=== PATIENT | female | born 1980 | race Two or more races ===

== ENCOUNTER 2019-03-07 20:44 | Emergency (ER) | payer BC ==
[~2019-03-07] VITALS: Ht 165.1 cm; Wt 63.5 kg
[~2019-03-07 20:44] MED LIST: ACE325RS PR; ACET60TA10 PO; DIPH25CA39 PO; PREN-129 OR
[2019-03-07 22:08] LABS: Basophils # (auto) 0.1 uL; Eosinophils # (auto) 0.1 uL
[2019-03-07 22:22] LABS: Alanine Aminotransferase 21 U/L (13-56); Albumin 3.7 g/dL (3.4-5.0); Amylase 37 U/L (25-115); Anion Gap 9 (5-15); Blood Urea Nitrogen 8 mg/dL (7-18); Calcium 8.9 mg/dL (8.5-10.1); Carbon Dioxide 26 mmol/L (21-32); Chloride 101 mmol/L (98-107); Glucose 138 mg/dL (74-106); Lipase 74 U/L (73-393); Potassium 4.1 mmol/L (3.5-5.1); Sodium 136 mmol/L (136-145)
[2019-03-07 22:27] LABS: Alkaline Phosphatase 85 U/L (45-117); Aspartate Aminotransferase 10 U/L (15-37); BUN/Creatinine Ratio 9.9; Bilirubin, Total 0.5 mg/dL (0.2-1.0); GFR African American 103 mL/min; GFR Non-African American 85 mL/min; Total Protein 8.2 g/dL (6.4-8.2)
[2019-03-07 22:34] LABS: Basophils % (auto) 0.6 % (0.0-2.0); Eosinophils % (auto) 0.5 % (0.0-7.0); Lymphocytes # (auto) 0.8 uL; Lymphocytes % (auto) 6.6 % (10.0-50.0); Monocytes # (auto) 1.3 uL; Monocytes % (auto) 10.3 % (0.0-12.0); Neutrophils # (auto) 10.6 uL; White Blood Cell 12.3 10^3/uL (4.4-10.8)
[2019-03-07 22:35] LABS: Hematocrit 28.6 % (36.0-46.0); Hemoglobin 8.3 g/dL (12.2-16.2); Mean Corpuscular Hgb Conc. 29.1 g/dL (32.0-36.0); Red Blood Cells 4.61 10^6/uL (4.0-5.20)
[2019-03-07 22:36] LABS: Platelet Count (auto) 329 10^3/uL (140-450); Red Cell Distribution Width 22.8 % (11.8-14.3)
[2019-03-08] MEDS ORDERED: MORPHINE SULFATE 4 MG/ML SYR/VIAL IV ONE (00:45)
[2019-03-08] MEDS ORDERED: ONDANSETRON HCL 4 MG/2 ML VIAL IV ONE (00:45)
[2019-03-08 01:04] VITALS: BP 113/70
[2019-03-08 01:28] LABS: Urine Bacteria FEW /hpf (None Seen); Urine Blood 2+ /uL (Negative); Urine Mucus FEW (None Seen); Urine Specific Gravity 1.011 (1.001-1.035); Urine WBC 673 /hpf (0 - 5); Urine WBC Clumps PRESENT /hpf (None Seen)
[2019-03-08] MEDS ORDERED: LORazepam 2MG/ML-1ML VIAL IV ONE (01:30)
== END 2019-03-08 02:21 | disposition home or self-care (01) ==
LOC: ER 20:50
DX: N39.0 Urinary tract infection, site not specified (principal); K57.30 Diverticulosis of large intestine without perforation or abscess without bleeding; Z90.49 Acquired absence of other specified parts of digestive tract
CPT/HCPCS: 36415; 74176; 80053; 81001; 82150; 83690; 84484; 84702; 85025; 94761; 96374; 96375; 99284; J2060; J2270; J2405

== ENCOUNTER 2019-03-09 10:45 | Inpatient (IN) | payer BC ==
[~2019-03-09] VITALS: Ht 165.1 cm; Wt 66.6 kg
[2019-03-09] MEDS ORDERED: SODIUM CHLORIDE 0.9% 1,000 ML IV ONE ×2 (10:52)
[2019-03-09] MEDS ORDERED: PIPERACILLIN-TAZOB 3.375GM 100 ML IV ONE (11:00)
[2019-03-09 11:40] LABS: Basophils # (auto) 0.1 uL; Basophils % (auto) 0.6 % (0.0-2.0); Eosinophils # (auto) 0 uL; Hemoglobin 8.4 g/dL (12.2-16.2); Lymphocytes # (auto) 0.4 uL; White Blood Cell 13.3 10^3/uL (4.4-10.8)
[2019-03-09 11:42] LABS: Eosinophils % (auto) 0.1 % (0.0-7.0); Hematocrit 29.2 % (36.0-46.0); Lymphocytes % (auto) 2.7 % (10.0-50.0); Mean Corpuscular Hgb Conc. 28.8 g/dL (32.0-36.0); Mean Corpuscular Volume 62.6 fL (80.0-100.0); Monocytes % (auto) 7.6 % (0.0-12.0); Neutrophils # (auto) 11.8 uL; Platelet Count (auto) 242 10^3/uL (140-450); Red Blood Cells 4.66 10^6/uL (4.0-5.20)
[2019-03-09 11:44] LABS: Albumin 3.1 g/dL (3.4-5.0); Calcium 8.6 mg/dL (8.5-10.1); Potassium 3.2 mmol/L (3.5-5.1)
[2019-03-09 11:48] LABS: BUN/Creatinine Ratio 9.3; Bilirubin, Total 0.4 mg/dL (0.2-1.0); Total Protein 7.7 g/dL (6.4-8.2)
[2019-03-09 11:55] LABS: Red Cell Distribution Width 21.9 % (11.8-14.3)
[2019-03-09 12:03] LABS: INR 1.02 (0.9-1.15); Partial Thromboplastin Time 34.2 sec (23.78-33.04); Prothrombin Time 10.9 sec (9.27-12.13)
[2019-03-09] MEDS ORDERED: MORPHINE SULF INJ 2 MG/ML SYRINGE 1ML IV ONE (14:30)
[2019-03-09] MEDS ORDERED: ONDANSETRON HCL 4 MG/2 ML VIAL IV ONE (14:30)
[2019-03-09] MEDS ORDERED: ACETAMINOPHEN 650 mg PER 20 mL UD PO ONE (16:15)
[2019-03-09] MEDS ORDERED: ACETAMINOPHEN 325 MG TAB PO ONE (16:15)
[2019-03-09] MEDS ORDERED: ONDANSETRON HCL 4 MG/2 ML VIAL IV PRN (16:45)
[2019-03-09] MEDS ORDERED: FAMOTIDINE (10MG/ML) 2ML VL IV ONE (16:45)
[2019-03-09] MEDS: SOD CHL 0.9%/ KCL 20MEQ 1,000 ML IV SCH (17:01)
[2019-03-09 17:25] LABS: Alcohol, Urine < 3.0 mg/dL (0-5); Amphetamine Screen, Urine NEGATIVE (NEGATIVE); Barbiturate Scree,Urine NEGATIVE (NEGATIVE); Benzodiazephine Screen, Urine NEGATIVE (NEGATIVE); Cannabinoid Screen, Urine NEGATIVE (NEGATIVE); Cocaine Screen, Urine NEGATIVE (NEGATIVE); Opiate Scree,Urine POSITIVE (NEGATIVE); Phencyclidine Screen, Urine NEGATIVE (NEGATIVE)
[2019-03-09 18:11] LABS: Urine Bacteria MOD /hpf (None Seen); Urine Blood 1+ /uL (Negative); Urine Specific Gravity 1.013 (1.001-1.035); Urine WBC 107 /hpf (0 - 5)
[2019-03-09] MEDS: ACETAMINOPHEN 325 MG TAB PO PRN (18:17)
[2019-03-09] MEDS: cefTRIAXone 1GM/50ML D5W 50 ML IV SCH (21:28)
[2019-03-09] MEDS: FAMOTIDINE (10MG/ML) 2ML VL IV SCH (22:05)
--- NOTE | 2019-03-09 22:50 | NUR ---
MS admit from ER Patient admitted to tele/MS and oriented to primary RN, unit, room, bed, and unit policies regarding patient care and visiting hours. NS/20 mEq KCL infusing at 120 ml/hr. Bed is in lowest position and locked. Call light within reach. Board updated. Patient weighed by bedscale and encouraged to call if they need something. All questions and concerns addressed, patient verbalized understanding.
[2019-03-09 23:00] VITALS: BP 94/57
[2019-03-10] VITALS (11 sets, daily range): BP systolic 94–113; BP diastolic 53–72
--- NOTE | 2019-03-10 00:01 | NUR ---
Ramonita hospitalist because patient is having pain 9 out of 10 in her bilateral flank which she says is not being relieved or even made tolerable by Morphine. Patient has low BP at this time, 94/57 with MAP of 69 so opiates may decrease BP further. Patient is believed by Dr. Thapa to have UTI, possible pyelonephritis. Patient's BUN and creatinine are 13 and 1.40.
--- NOTE | 2019-03-10 00:18 | NUR ---
Hospitalist called back and notified her of pain as well as low BP and current BUN and Creatinine levels for patient. ALINA Mitchell ordered Toradol 30 mg IV Once. Order confirmed and placed.
[2019-03-10] MEDS ORDERED: KETOROLAC TROMETH 30 MG/ML 1ML VIAL IV ONE (00:30)
[2019-03-10] MEDS: SOD CHL 0.9%/ KCL 20MEQ 1,000 ML IV SCH ×3 (00:48→18:29)
--- NOTE | 2019-03-10 00:55 | NUR ---
Received a call from Laboratory notifying me that patient's blood culture has come back positive for Gram Negative rods.
--- NOTE | 2019-03-10 02:01 | NUR ---
Paging hospitalist to notify her that patient's blood culture came back positive for Gram Negative rods. Patient is currently receiving Rocephin 1 gm Daily and received Zosyn 3.375 gm IV once in ED.
[2019-03-10] MEDS: MORPHINE SULF INJ 2 MG/ML SYRINGE 1ML IV PRN ×4 (04:40→21:06)
[2019-03-10 05:38] LABS: Eosinophils # (auto) 0 uL; Eosinophils % (auto) 0.1 % (0.0-7.0); Lymphocytes # (auto) 0.7 uL; Monocytes # (auto) 1.1 uL; Neutrophils # (auto) 7.1 uL
[2019-03-10 05:40] LABS: Basophils # (auto) 0.1 uL; Basophils % (auto) 0.6 % (0.0-2.0); Hematocrit 22.9 % (36.0-46.0); Lymphocytes % (auto) 8.1 % (10.0-50.0); Mean Corpuscular Hemoglobin 18.2 pg (28.0-32.0); Mean Corpuscular Hgb Conc. 28.9 g/dL (32.0-36.0); Mean Corpuscular Volume 62.8 fL (80.0-100.0); Monocytes % (auto) 12.6 % (0.0-12.0); Neutrophils % (auto) 78.6 % (37.0-80.0); Platelet Count (auto) 168 10^3/uL (140-450); Red Blood Cells 3.65 10^6/uL (4.0-5.20)
[2019-03-10 05:44] LABS: Red Cell Distribution Width 22.3 % (11.8-14.3)
[2019-03-10 05:45] LABS: Hemoglobin 6.7 g/dL (12.2-16.2)
--- NOTE | 2019-03-10 05:57 | NUR ---
paging hospitalist because patient has critical low hemoglobin of 6.7 and hematocrit of 22.9. Previous H&H was 8.4 and 29.2. Current BP is 94/64 which is slightly lower than what she was trending earlier in the night. Heart rate is 90, previous was 96. Patient does not feel symptomatic. Patient is reluctant to have a blood transfusion but will allow it if hospitalist orders it. Patient does not report blood in her urine but did report some blood in her diarrhea two days ago.
--- NOTE | 2019-03-10 06:07 | NUR ---
Spoke to ALINA Mitchell who ordered type and screen STAT, Stool Occult blood, and 1 unit of packed RBCs. Orders confirmed and ordered.
[2019-03-10 06:14] LABS: Calcium 7.8 mg/dL (8.5-10.1); Potassium 3.2 mmol/L (3.5-5.1)
[2019-03-10 06:17] LABS: BUN/Creatinine Ratio 11.2
--- NOTE | 2019-03-10 06:45 | NUR ---
Patient would like to speak to MD in person and wants to see if there are any other options available beside blood transfusion. Patient would like to know if Albumin or some other medication can be used instead. I told her I would contact the hospitalist to see if she can speak to patient when she returns from going downstairs to have a cigarette. Addendum: 03/10/19 at 0651 by RYAN DURAN RN Patient did agree to sign consent for blood transfusion.
--- NOTE | 2019-03-10 06:48 | NUR ---
Patient has gone downstairs to have a cigarette using her smoking AMA. Patient is able to walk without feeling dizzy or weak.
--- NOTE | 2019-03-10 07:30 | NUR ---
Opening Shift Note Assumed care of patient, awake and alert. No S/S of distress/SOB or pain. Instructed on POC and to call for assist PRN. Bed at its lowest position, side rails up X2, room free of clutter.
--- NOTE | 2019-03-10 07:50 | NUR ---
PAGED HOSPITALIST REGARDING PATIENTS REQUEST TO SPEAK TO MD REGARDING BLOOD TRANSFUSION. PER REPORT FROM [facility] RN, RYAN, PATIENT NOT COMFORTABLE WITH RECEIVING BLOOD TRANSFUSION UNTIL SPEAKING DIRECTLY WITH MD. ENGINEERING AND DEVELOPMENT DIRECTOR HOSPITALIST, KALIN JOHNSON AWARE OF PATIENTS REQUEST. STATES PATIENT CAN SPEAK TO ATTENDING MD ON CASE REGARDING CONCERNS.
[2019-03-10] MEDS: ACETAMINOPHEN 325 MG TAB PO PRN ×3 (08:23→20:27)
[2019-03-10] MEDS: FAMOTIDINE (10MG/ML) 2ML VL IV SCH ×3 (08:25→21:06)
[2019-03-10] MEDS: cefTRIAXone 1GM/50ML D5W 50 ML IV SCH ×2 (08:30→21:04)
--- NOTE | 2019-03-10 10:05 | NUR ---
MD NOE AT BED SIDE TO DISCUSS POC WITH PATIENT. PATIENT VERBALIZES UNDERSTANDING.
[2019-03-10] MEDS ORDERED: NICOTINE 21MG/24 HR TOPICAL PATCH TD ONE (10:15)
[2019-03-10] MEDS ORDERED: POTASSIUM CHL 20 Meq TABLET PO ONE (10:15)
[2019-03-10 11:03] LABS: % Iron Saturation 2.1 % (15-50); Iron < 5 ug/dL (50-170); Total Iron Binding Capacity 236 ug/dL (250-450)
--- NOTE | 2019-03-10 11:40 | NUR ---
NICOJAIROM Patient states she would prefer to use scheduled Nicoderm patch tomorrow. "I have one cigarette left for tomorrow, I would like to use the patch after that".
[2019-03-10] MEDS ORDERED: EZ PAQUE SUSP 12OZ BTL ONE (12:25)
[2019-03-10] MEDS ORDERED: BARIUM SULFATE 98% 340 GM PWDR ONE (12:25)
[2019-03-10] MEDS ORDERED: READI-CAT 2 (BARIUM SULF)(VANILLA SMOOTHIE) 450ML ONE (12:26)
--- NOTE | 2019-03-10 13:00 | NUR ---
DR BOYLE AT BED SIDE MD DISCUSSED POC WITH PATIENT. PATIENT VERBALIZED UNDERSTANDING. MD RECOMMENDS OUT PATIENT FOLLOW UP.
--- NOTE | 2019-03-10 13:20 | NUR ---
PATIENT REQUEST PAIN MEDICATION CHANGE. STATES THAT MORPHINE " DOES NOTHING TO HER PAIN", REQUEST CHANGE TO DILAUDID. DR NOE PAGED. AWAITING CALL BACK.
--- NOTE | 2019-03-10 13:25 | NUR ---
DR PARIKH AWARE OF PATIENTS REQUEST. DENIES REQUEST FOR DILAUDID. STATES HE WILL ENTER ORDER FOR KINSTON.
--- NOTE | 2019-03-10 17:44 | NUR ---
STOOL Stool sample collected and sent to lab via bullet.
[2019-03-10] MEDS: FERROUS SULFATE 325 MG TAB PO SCH (18:30)
--- NOTE | 2019-03-10 18:30 | NUR ---
OFF UNIT Patient ambulated off unit accompanied by friend to smoke. No S/S of distress noted.
--- NOTE | 2019-03-10 18:52 | NUR ---
RETURN TO UNIT Patient returned to unit. States that last cigarette has been used and would like to "try out the patch tonight". Will inform EMILIE DURAND.
--- NOTE | 2019-03-10 19:30 | NUR ---
CLOSING NOTE Endorsed care of patient to NOC Raquel DURAND.
--- NOTE | 2019-03-10 19:45 | NUR ---
Opening Shift Note Assumed care of patient, patient sleeping. No S/S of distress/SOB or pain, respirations even and unlabored. Instructed on POC and to call for assistance PRN, will continue to monitor for changes Q1hr and PRN. Addendum: 03/11/19 at 0257 by Raquel Barron RN RN Visitor at bedside
--- NOTE | 2019-03-10 21:03 | NUR ---
Pain Management Pt medicated for complaints of back pain, will continue to monitor. Call light within reach in lowest locked position. Pt instructed on side effects and to call for assistance as needed
[2019-03-10] MEDS: NICOTINE 21MG/24 HR TOPICAL PATCH TD SCH (21:06)
[2019-03-11] VITALS (7 sets, daily range): BP systolic 98–118; BP diastolic 59–71
[2019-03-11] MEDS: SOD CHL 0.9%/ KCL 20MEQ 1,000 ML IV SCH ×3 (00:53→18:47)
[2019-03-11] MEDS: MORPHINE SULF INJ 2 MG/ML SYRINGE 1ML IV PRN ×4 (00:58→21:23)
--- NOTE | 2019-03-11 00:58 | NUR ---
Pain Management Pt medicated for c/o back pain, will continue to monitor
[2019-03-11] MEDS: ACETAMINOPHEN 325 MG TAB PO PRN ×3 (02:35→21:23)
--- NOTE | 2019-03-11 02:37 | NUR ---
Rounds Patient sleeping, temperature taken 102.6, cooling measures implemented and medicated for fever. No S/S of distress/SOB on 2L NC 93%, denies pain at this time. Will continue to monitor changes q1hr and PRN.
[2019-03-11 06:18] LABS: BUN/Creatinine Ratio 9.6; Calcium 7.9 mg/dL (8.5-10.1); Potassium 3.5 mmol/L (3.5-5.1)
[2019-03-11 06:22] LABS: Eosinophils # (auto) 0 uL; Eosinophils % (auto) 0.2 % (0.0-7.0); Lymphocytes # (auto) 0.8 uL
[2019-03-11 06:27] LABS: Basophils # (auto) 0 uL; Basophils % (auto) 0.6 % (0.0-2.0); Hematocrit 24.1 % (36.0-46.0); Hemoglobin 7.3 g/dL (12.2-16.2); Lymphocytes % (auto) 13.7 % (10.0-50.0); Mean Corpuscular Hemoglobin 19.6 pg (28.0-32.0); Mean Corpuscular Hgb Conc. 30.2 g/dL (32.0-36.0); Monocytes # (auto) 0.6 uL; Monocytes % (auto) 10.7 % (0.0-12.0); Neutrophils # (auto) 4.5 uL; Neutrophils % (auto) 74.8 % (37.0-80.0); Platelet Count (auto) 176 10^3/uL (140-450)
[2019-03-11 07:17] LABS: Red Cell Distribution Width 24.5 % (11.8-14.3)
--- NOTE | 2019-03-11 07:20 | NUR ---
Opening Shift Note Assumed care of patient. Patient asleep but easily arousable. No S/S of distress or SOB or pain. Bed at its lowest position. side rails up x2. Instructed on POC and to call for assist PRN.
[2019-03-11] MEDS: FERROUS SULFATE 325 MG TAB PO SCH ×2 (08:36→18:46)
[2019-03-11] MEDS: cefTRIAXone 1GM/50ML D5W 50 ML IV SCH (08:38)
[2019-03-11] MEDS ORDERED: EZ-GAS II GRANULES (RADIOLOGY USE) PO ONE (08:59)
--- NOTE | 2019-03-11 09:25 | NUR ---
PATIENT TAKEN OFF UNIT TO RADIOLOGY FOR PROCEDURE. PATIENT STABLE, VITALS WITH IN NORMAL LIMIT
[2019-03-11] MEDS ORDERED: GASTROGRAFIN 120 ML SOL ONE (09:30)
[2019-03-11] MEDS ORDERED: FOLIC ACID 1 MG in D5W 5% 50 ML IV ONE (10:00)
[2019-03-11] MEDS ORDERED: ERTAPENEM SOD INJ 1 GM in SODIUM CHL 0.9% 50 ML IV ONE (10:00)
[2019-03-11] MEDS ORDERED: THIAMINE 100mg/ml INJ (200mg/2ml VIAL) IV ONE (10:00)
--- NOTE | 2019-03-11 10:31 | NUR ---
RETURN TO UNIT Patient returned to unit via wheelchair. No S/S of distress noted.
[2019-03-11] MEDS: FOLIC ACID 1 MG in D5W 5% 50 ML IV SCH (11:50)
[2019-03-11] MEDS: THIAMINE 100mg/ml INJ (200mg/2ml VIAL) IV SCH (11:50)
[2019-03-11] MEDS: chlordiazePOXIDE HCL 5 MG CAP PO SCH ×3 (12:24→21:23)
--- NOTE | 2019-03-11 13:50 | NUR ---
IV Infiltrated IV removed with catheter intact, pressure dressing applied. IV access obtained, via clean sterile technique by inserting 22 gauge catheter at right hand after 1 attempt. IV secured properly. No trauma to site. Patient tolerated well.
[2019-03-11] MEDS: HYDROcodone-ACET 5/325MG TAB PO PRN ×2 (15:40→23:37)
--- NOTE | 2019-03-11 19:25 | NUR ---
CLOSING NOTE Endorsed care of patient to NOC Raquel DURAND.
--- NOTE | 2019-03-11 21:06 | NUR ---
MD Called/paged Hospitalist Hector called re:patient complaining of cough and productive cough . Waiting for call back. Continue care.
[2019-03-11] MEDS: FAMOTIDINE (10MG/ML) 2ML VL IV SCH (21:23)
--- NOTE | 2019-03-11 21:52 | NUR ---
returned call Hospitalist Hector returned call, updated on patient status and reason for call, orders received. Continue care.
[2019-03-11] MEDS: guaiFENesin-DM 100/10mg/5ml SYR PO PRN (23:08)
--- NOTE | 2019-03-11 23:10 | NUR ---
Rounds Patient awake and alert x4. No S/S of distress/SOB or pain, patient medicated for cough. Will continue to monitor changes q1hr and PRN.
[2019-03-12 04:51] VITALS: BP 99/61
[2019-03-12] MEDS: guaiFENesin-DM 100/10mg/5ml SYR PO PRN ×3 (04:55→18:42)
[2019-03-12] MEDS: chlordiazePOXIDE HCL 5 MG CAP PO SCH ×4 (04:56→21:30)
[2019-03-12] MEDS: ACETAMINOPHEN 325 MG TAB PO PRN (04:56)
[2019-03-12] MEDS: SOD CHL 0.9%/ KCL 20MEQ 1,000 ML IV SCH ×2 (04:59→10:31)
--- NOTE | 2019-03-12 05:02 | NUR ---
Pain Management Pt medicated for headache pain 06/06, will continue to monitor for pain relief.
[2019-03-12 06:15] LABS: Basophils # (auto) 0 uL; Basophils % (auto) 0.7 % (0.0-2.0); Eosinophils # (auto) 0.1 uL; Eosinophils % (auto) 1.8 % (0.0-7.0); Hematocrit 24.7 % (36.0-46.0); Hemoglobin 7.2 g/dL (12.2-16.2); Lymphocytes # (auto) 1.1 uL; Lymphocytes % (auto) 19.2 % (10.0-50.0); Mean Corpuscular Hemoglobin 19.3 pg (28.0-32.0); Mean Corpuscular Hgb Conc. 29.2 g/dL (32.0-36.0); Mean Corpuscular Volume 66.2 fL (80.0-100.0); Monocytes # (auto) 0.8 uL; Monocytes % (auto) 13.6 % (0.0-12.0); Neutrophils # (auto) 3.7 uL; Neutrophils % (auto) 64.7 % (37.0-80.0); Nucleated Red Blood Cells % 0.1 %; Platelet Count (auto) 184 10^3/uL (140-450); Red Blood Cells 3.73 10^6/uL (4.0-5.20); White Blood Cell 5.7 10^3/uL (4.4-10.8)
[2019-03-12 06:17] LABS: Red Cell Distribution Width 25.5 % (11.8-14.3)
[2019-03-12 06:38] LABS: Potassium 3.7 mmol/L (3.5-5.1)
--- NOTE | 2019-03-12 06:40 | NUR ---
IV removal IV to right hand DC'd with clean sterile technique after accidental dislodgement and swelling, catheter fully intact. Pressure dressing applied to site. Patient tolerated well. NOTE:
[2019-03-12 06:44] LABS: BUN/Creatinine Ratio 9.5; Calcium 7.9 mg/dL (8.5-10.1)
--- NOTE | 2019-03-12 06:45 | NUR ---
IV insertion IV access obtained, via clean sterile technique by inserting 22 gauge catheter at left wrist after attempt(s). IV secured properly. No trauma to site. Patient tolerated well. NOTE:
[2019-03-12] MEDS: HYDROcodone-ACET 5/325MG TAB PO PRN ×3 (06:47→21:30)
--- NOTE | 2019-03-12 07:15 | NUR ---
PT SLEEPING AT MOMENT. EASILY AROUSABLE, NO S/S OF DISTRESS, IV PATENT, INFUSING WELL TO LEFT WRIST #22. EFFORTLESS BREATHING ON 2LNC. BED IN LOWEST POSITION, BED WHEELS LOCKED, CALL LIGHT WITHIN REACH. WILL CONTINUE TO MONITOR.
[2019-03-12] MEDS: FERROUS SULFATE 325 MG TAB PO SCH ×2 (08:59→18:42)
[2019-03-12 09:00] VITALS: BP 106/65
[2019-03-12] MEDS: THIAMINE 100mg/ml INJ (200mg/2ml VIAL) IV SCH (09:00)
[2019-03-12] MEDS: NICOTINE 21MG/24 HR TOPICAL PATCH TD SCH (09:01)
[2019-03-12] MEDS: FAMOTIDINE (10MG/ML) 2ML VL IV SCH ×2 (09:01→21:31)
[2019-03-12] MEDS: ERTAPENEM SOD INJ 1 GM in SODIUM CHL 0.9% 50 ML IV SCH (09:04)
[2019-03-12] MEDS: MORPHINE SULF INJ 2 MG/ML SYRINGE 1ML IV PRN ×3 (09:07→23:47)
[2019-03-12] MEDS: FOLIC ACID 1 MG in D5W 5% 50 ML IV SCH (10:31)
[2019-03-12 13:00] VITALS: BP 135/71
--- NOTE | 2019-03-12 13:14 | NUR ---
I faxed home IV ATB order to [facility].
--- NOTE | 2019-03-12 13:36 | NUR ---
PT TEMP:100.3 MEDICATED PER EMAR, FOR C/O PAIN TO FLANKS. SCHEDULED MED GIVEN. MEDICATED FOR COUGH WELL. PT TOLERATED WELL. COOLING INTERVENTIONS IN PLACE. CALL LIGHT WITHIN REACH.
--- NOTE | 2019-03-12 15:03 | NUR ---
PT IN LOW FOWLERS, DENIES DISCOMFORT AT MOMENT. TEMP: 99.2 WILL CONTINUE TO MONITOR. PT AWARE OF PLANNED MIDLINE PLACEMENT, QUESTIONS AND CONCERNS GONE OVER. PT REPORTS RELIEF WITH MILD NERVOUS FEELING ABOUT PROCEDURE.
--- NOTE | 2019-03-12 15:48 | NUR ---
Midline Placement: Patient educated on need for midline placement. All risks and benefits explained and all questions and concerns addresses prior to procedure. 18g/10cm midline inserted via left basilic vein using Ultrasound. Sterile technique utilized. Blood return obtained from the lumen and flushed easily with NS using proper technique. Midline secured with saline lock; biodisc and occlusive dressing applied. Primary RN notified. Midline lot # [id number]. x1 attempt
--- NOTE | 2019-03-12 16:45 | NUR ---
IV TO LEFT WRIST #22 DC'D CATHETER INTACT, NO PHLEBITIS. NO ACTIVE BLEEDING.
[2019-03-12 17:00] VITALS: BP 114/71
--- NOTE | 2019-03-12 18:50 | NUR ---
PASSED AFTERNOON MEDICATIONS, MEDICATED FOR C/O PAIN TO FLANKS. PT TOLERTAED WELL. TEMP: 99.0 CALL LIGHT WITHIN REACH. FAMILY AT BEDSIDE.
--- NOTE | 2019-03-12 19:20 | NUR ---
Opening Shift Note Assumed care of patient, awake and alert. No S/S of distress/SOB. Instructed on POC and to call for assist PRN. Bed in lowest locked position, call light within reach, side rails up x2. Will continue to monitor for changes Q1hr and PRN.
--- NOTE | 2019-03-12 21:30 | NUR ---
Temperature at 100.0, cooling measures initiated. Addendum: 03/13/19 at 0024 by CLAUDIA HAYES OCA, RN Recheck at 2230 temp 98.9. Continue care.
[2019-03-12 22:00] VITALS: BP 122/77
[2019-03-13] MEDS: SOD CHL 0.9%/ KCL 20MEQ 1,000 ML IV SCH ×2 (01:48→13:03)
[2019-03-13] MEDS: guaiFENesin-DM 100/10mg/5ml SYR PO PRN ×4 (02:46→23:13)
[2019-03-13] MEDS: MORPHINE SULF INJ 2 MG/ML SYRINGE 1ML IV PRN ×4 (04:49→22:19)
[2019-03-13 05:00] VITALS: BP 117/80
[2019-03-13] MEDS: chlordiazePOXIDE HCL 5 MG CAP PO SCH ×4 (05:38→22:18)
[2019-03-13 06:13] LABS: Basophils # (auto) 0.1 uL; Basophils % (auto) 1.3 % (0.0-2.0); Eosinophils # (auto) 0.3 uL; Eosinophils % (auto) 4.4 % (0.0-7.0); Hematocrit 23.7 % (36.0-46.0); Hemoglobin 7.1 g/dL (12.2-16.2); Lymphocytes # (auto) 1.5 uL; Lymphocytes % (auto) 24.7 % (10.0-50.0); Mean Corpuscular Hemoglobin 19.5 pg (28.0-32.0); Mean Corpuscular Hgb Conc. 29.8 g/dL (32.0-36.0); Mean Corpuscular Volume 65.6 fL (80.0-100.0); Monocytes # (auto) 0.9 uL; Monocytes % (auto) 15.2 % (0.0-12.0); Neutrophils # (auto) 3.4 uL; Neutrophils % (auto) 54.4 % (37.0-80.0); Platelet Count (auto) 226 10^3/uL (140-450); Red Blood Cells 3.61 10^6/uL (4.0-5.20); Red Cell Distribution Width 25.1 % (11.8-14.3); White Blood Cell 6.2 10^3/uL (4.4-10.8)
[2019-03-13] MEDS: HYDROcodone-ACET 5/325MG TAB PO PRN ×2 (06:58→15:50)
[2019-03-13] MEDS: FOLIC ACID 1 MG in D5W 5% 50 ML IV SCH (08:29)
[2019-03-13] MEDS: FERROUS SULFATE 325 MG TAB PO SCH ×2 (08:29→18:11)
--- NOTE | 2019-03-13 08:52 | NUR ---
I called [facility] and left message [phone] to check on the status of the home IV ATB order.
[2019-03-13 09:00] VITALS: BP 112/75
[2019-03-13] MEDS: ERTAPENEM SOD INJ 1 GM in SODIUM CHL 0.9% 50 ML IV SCH (10:55)
[2019-03-13] MEDS: NICOTINE 21MG/24 HR TOPICAL PATCH TD SCH (10:56)
[2019-03-13] MEDS: THIAMINE HCL 100 MG TAB PO SCH ×2 (10:56→11:14)
[2019-03-13] MEDS: FAMOTIDINE (10MG/ML) 2ML VL IV SCH ×2 (10:56→22:18)
--- NOTE | 2019-03-13 11:28 | NUR ---
I received a message from Diandra at [facility]-called provided number [phone] ext [phone], left message asking her to call me back JACKLYN regarding the home IV ATB for this patient-awaiting return call.
--- NOTE | 2019-03-13 11:48 | NUR ---
I spoke with Diandra at [facility], she said they may be able to provide nursing to the patient as well for the IV ATB, she will give me a call back-I let her know that most likely patient will be discharged home tomorrow with start of care being Thursday 03/15.
--- NOTE | 2019-03-13 12:00 | NUR ---
Nutrition Assessment Notes Please see attached link for complete assessment Est. Needs based on BW (70kg kg): 3061-9056 kcal (23-25 kcal/kgBW), 70-77 gms pro (1.0-1.1 gms/kgBW). Will continue to monitor pertinent labs and reassess nutrient need prn Addendum: 03/13/19 at [address] Amended: Links added.
[2019-03-13 13:00] VITALS: BP 112/80
--- NOTE | 2019-03-13 16:17 | NUR ---
I called [facility] and left message for Diandra-to verify that they can provide the home health part of this order-awaiting return call.
[2019-03-13 17:44] VITALS: BP 107/81
--- NOTE | 2019-03-13 19:50 | NUR ---
Opening Shift Note Assumed care of patient, awake and alert. No S/S of distress/SOB or pain. Instructed on POC and to call for assist PRN. Bed in lowest locked position, call light within reach, side rails up x2. Will continue to monitor for changes Q1hr and PRN.
[2019-03-13 22:00] VITALS: BP 114/75
[2019-03-14] MEDS: SOD CHL 0.9%/ KCL 20MEQ 1,000 ML IV SCH (02:15)
[2019-03-14] MEDS: guaiFENesin-DM 100/10mg/5ml SYR PO PRN (03:28)
[2019-03-14] MEDS: HYDROcodone-ACET 5/325MG TAB PO PRN ×3 (03:28→20:05)
[2019-03-14 05:00] VITALS: BP 106/74
[2019-03-14 05:23] LABS: Basophils # (auto) 0.1 uL; Basophils % (auto) 1.6 % (0.0-2.0); Eosinophils # (auto) 0.5 uL; White Blood Cell 7.2 10^3/uL (4.4-10.8)
[2019-03-14 05:24] LABS: Eosinophils % (auto) 6.3 % (0.0-7.0); Hematocrit 24.4 % (36.0-46.0); Hemoglobin 7.4 g/dL (12.2-16.2); Lymphocytes # (auto) 1.7 uL; Lymphocytes % (auto) 23.8 % (10.0-50.0); Mean Corpuscular Hemoglobin 19.4 pg (28.0-32.0); Mean Corpuscular Hgb Conc. 30.1 g/dL (32.0-36.0); Mean Corpuscular Volume 64.5 fL (80.0-100.0); Monocytes # (auto) 0.9 uL; Monocytes % (auto) 12.9 % (0.0-12.0); Neutrophils % (auto) 55.4 % (37.0-80.0); Platelet Count (auto) 301 10^3/uL (140-450); Red Blood Cells 3.79 10^6/uL (4.0-5.20)
[2019-03-14 05:33] LABS: Red Cell Distribution Width 25.2 % (11.8-14.3)
[2019-03-14] MEDS: chlordiazePOXIDE HCL 5 MG CAP PO SCH ×4 (05:59→21:55)
[2019-03-14] MEDS: MORPHINE SULF INJ 2 MG/ML SYRINGE 1ML IV PRN (06:04)
[2019-03-14 09:00] VITALS: BP 107/73
[2019-03-14] MEDS: NICOTINE 21MG/24 HR TOPICAL PATCH TD SCH (10:00)
[2019-03-14] MEDS: ERTAPENEM SOD INJ 1 GM in SODIUM CHL 0.9% 50 ML IV SCH (10:27)
[2019-03-14] MEDS: FERROUS SULFATE 325 MG TAB PO SCH ×2 (10:28→20:06)
[2019-03-14] MEDS: THIAMINE HCL 100 MG TAB PO SCH (10:28)
[2019-03-14] MEDS: FAMOTIDINE 20 MG TAB PO SCH ×2 (10:28→21:54)
[2019-03-14] MEDS: FOLIC ACID 1 MG TAB PO SCH (10:28)
[2019-03-14 13:00] VITALS: BP 113/77
[2019-03-14] MEDS: ACETAMINOPHEN 325 MG TAB PO PRN (15:10)
[2019-03-14 17:00] VITALS: BP 105/73
[2019-03-14 22:00] VITALS: BP 112/67
[2019-03-15] MEDS: chlordiazePOXIDE HCL 5 MG CAP PO SCH ×4 (05:17→21:18)
[2019-03-15] MEDS: HYDROcodone-ACET 5/325MG TAB PO PRN ×3 (05:18→21:19)
[2019-03-15 05:28] VITALS: BP 100/64
[2019-03-15 08:52] VITALS: BP 91/51
[2019-03-15] MEDS: NICOTINE 21MG/24 HR TOPICAL PATCH TD SCH (10:00)
[2019-03-15] MEDS: ERTAPENEM SOD INJ 1 GM in SODIUM CHL 0.9% 50 ML IV SCH (10:32)
[2019-03-15] MEDS: FERROUS SULFATE 325 MG TAB PO SCH ×2 (10:32→18:08)
[2019-03-15] MEDS: FOLIC ACID 1 MG TAB PO SCH (10:43)
[2019-03-15] MEDS: THIAMINE HCL 100 MG TAB PO SCH (10:43)
[2019-03-15] MEDS: FAMOTIDINE 20 MG TAB PO SCH ×2 (10:43→21:18)
[2019-03-15] MEDS: ACETAMINOPHEN 325 MG TAB PO PRN (10:44)
[2019-03-15 13:00] VITALS: BP 100/62
[2019-03-15 16:53] VITALS: BP 110/71
[2019-03-15 22:00] VITALS: BP 97/64
[2019-03-16 05:00] VITALS: BP 83/48
[2019-03-16] MEDS: chlordiazePOXIDE HCL 5 MG CAP PO SCH ×2 (06:09→12:00)
[2019-03-16] MEDS: HYDROcodone-ACET 5/325MG TAB PO PRN ×2 (06:09→09:58)
[2019-03-16 09:00] VITALS: BP 95/58
[2019-03-16] MEDS: NICOTINE 21MG/24 HR TOPICAL PATCH TD SCH (09:47)
[2019-03-16] MEDS: ERTAPENEM SOD INJ 1 GM in SODIUM CHL 0.9% 50 ML IV SCH (09:47)
[2019-03-16] MEDS: FOLIC ACID 1 MG TAB PO SCH (09:49)
[2019-03-16] MEDS: THIAMINE HCL 100 MG TAB PO SCH (09:49)
--- NOTE | 2019-03-16 09:55 | NUR ---
I spoke with Diandra at [facility]-faxed her today's d/c order-she will call me back to verify that they have nurses to service the patient.
[2019-03-16] MEDS: FAMOTIDINE 20 MG TAB PO SCH (09:59)
[2019-03-16] MEDS: FERROUS SULFATE 325 MG TAB PO SCH (10:00)
--- NOTE | 2019-03-16 10:51 | NUR ---
I received a call from Diandra at [facility] letting me know that they can provide nursing for the patient for the IV ATB-she will call patient to discuss delivery time/arrange for first visit.
[2019-03-16 13:00] VITALS: BP 94/56
[2019-03-16 14:36] VITALS: BP 132/72
[2019-03-16 15:20] VITALS: BP 132/72
--- NOTE | 2019-03-16 18:26 | NUR ---
Patient went home with home health feeling well vital signs in normal limts all DC instruction including appointment gave to the patient //Favio DURAND
== END 2019-03-16 16:00 | disposition home or self-care (01) | DRG 871 ==
LOC: EEVIPCON 10:48 → ER 10:48 → OVERFLOW 16:26 → CENTRAL 22:45
PROVIDERS: ADMIT Internal Medicine; ATTEND Internal Medicine
PROC: 30233N1 Transfusion of Nonautologous Red Blood Cells into Peripheral Vein, Percutaneous Approach (ICD-10-PCS; principal; 2019-03-10)
DX: A41.51 Sepsis due to Escherichia coli [E. coli] (principal); N17.0 Acute kidney failure with tubular necrosis; N39.0 Urinary tract infection, site not specified; D64.9 Anemia, unspecified; F10.10 Alcohol abuse, uncomplicated; N92.0 Excessive and frequent menstruation with regular cycle; F17.210 Nicotine dependence, cigarettes, uncomplicated; K57.90 Diverticulosis of intestine, part unspecified, without perforation or abscess without bleeding; R73.9 Hyperglycemia, unspecified; F41.9 Anxiety disorder, unspecified; Z90.49 Acquired absence of other specified parts of digestive tract
CPT/HCPCS: 36415; 71045; 74220; 76856; 80048; 80053; 80307; 81001; 82270; 83036; 83540; 83550; 84702; 85025; 85610; 85730; 86850; 86900; 86901; 86920; 87040; 87077; 87081; 87086; 87088; 87186; 96365; 96366; 96375; 96376; G0378; J0696; J1335; J1885; J2405; J2543; J3490; J7060

== ENCOUNTER → 2019-03-31 | Outpatient (CLI) | payer BC ==
[2019-03-31 16:37] LABS: Basophils # (auto) 0.1 uL; Eosinophils # (auto) 0.3 uL; Hemoglobin 11.6 g/dL (12.2-16.2); Lymphocytes # (auto) 1.7 uL; Monocytes # (auto) 0.6 uL; Neutrophils % (auto) 64.7 % (37.0-80.0); Platelet Count (auto) 358 10^3/uL (140-450); White Blood Cell 7.5 10^3/uL (4.4-10.8)
[2019-03-31 16:38] LABS: Basophils % (auto) 1.4 % (0.0-2.0); Eosinophils % (auto) 3.5 % (0.0-7.0); Hematocrit 36.8 % (36.0-46.0); Lymphocytes % (auto) 22.8 % (10.0-50.0); Mean Corpuscular Hemoglobin 23.1 pg (28.0-32.0); Mean Corpuscular Hgb Conc. 31.5 g/dL (32.0-36.0); Mean Corpuscular Volume 73.3 fL (80.0-100.0); Monocytes % (auto) 7.6 % (0.0-12.0); Neutrophils # (auto) 4.9 uL; Red Blood Cells 5.02 10^6/uL (4.0-5.20)
[2019-03-31 16:40] LABS: Red Cell Distribution Width 33.1 % (11.8-14.3)
== END | disposition home or self-care (01) ==
LOC: LAB 15:59
PROVIDERS: ATTEND Internal Medicine
DX: D64.9 Anemia, unspecified (principal)
CPT/HCPCS: 36415; 84443; 85025

== ENCOUNTER 2019-05-16 21:45 | Emergency (ER) | payer BC ==
[~2019-05-16] VITALS: Ht 165.1 cm; Wt 64.4 kg
[2019-05-16 22:22] LABS: Basophils # (auto) 0.1 uL; Basophils % (auto) 0.9 % (0.0-2.0); Eosinophils # (auto) 0.2 uL; Eosinophils % (auto) 3.4 % (0.0-7.0); Hematocrit 39.4 % (36.0-46.0); Hemoglobin 13.3 g/dL (12.2-16.2); Lymphocytes # (auto) 1.9 uL; Lymphocytes % (auto) 27.5 % (10.0-50.0); Mean Corpuscular Hemoglobin 29.7 pg (28.0-32.0); Mean Corpuscular Hgb Conc. 33.7 g/dL (32.0-36.0); Mean Corpuscular Volume 87.9 fL (80.0-100.0); Monocytes # (auto) 0.7 uL; Neutrophils % (auto) 58.2 % (37.0-80.0); Platelet Count (auto) 241 10^3/uL (140-450); Red Blood Cells 4.49 10^6/uL (4.0-5.20); White Blood Cell 6.8 10^3/uL (4.4-10.8)
[2019-05-16 22:28] LABS: Red Cell Distribution Width 21.8 % (11.8-14.3)
[2019-05-16 22:54] LABS: Albumin 3.7 g/dL (3.4-5.0); Anion Gap 9 (5-15); Blood Urea Nitrogen 6 mg/dL (7-18); Calcium 8.8 mg/dL (8.5-10.1); Carbon Dioxide 26 mmol/L (21-32); Chloride 104 mmol/L (98-107); Glucose 97 mg/dL (74-106); Potassium 3.7 mmol/L (3.5-5.1); Sodium 139 mmol/L (136-145)
[2019-05-16 22:59] LABS: Lactic Acid w/Reflex 2.1 mmol/L (0.4-2.0)
[2019-05-16 23:00] LABS: Alanine Aminotransferase 20 U/L (13-56); Alkaline Phosphatase 83 U/L (45-117); Aspartate Aminotransferase 22 U/L (15-37); BUN/Creatinine Ratio 8.3; Bilirubin, Total 0.2 mg/dL (0.2-1.0); GFR African American 118 mL/min; GFR Non-African American 97 mL/min; Total Protein 7.9 g/dL (6.4-8.2)
[2019-05-17 01:54] LABS: Urine Bacteria FEW /hpf (None Seen); Urine Blood Negative /uL (Negative); Urine Specific Gravity 1.004 (1.001-1.035); Urine WBC 2 /hpf (0 - 5)
[2019-05-17] MEDS ORDERED: SODIUM CHLORIDE 0.9% 1,000 ML IV ONE (05:15)
[2019-05-17 05:34] VITALS: BP 109/73
[2019-05-17] MEDS ORDERED: MORPHINE SULFATE 4 MG/ML SYR/VIAL IV ONE (05:45)
[2019-05-17] MEDS ORDERED: ONDANSETRON HCL 4 MG/2 ML VIAL IV ONE (05:45)
== END 2019-05-17 06:32 | disposition home or self-care (01) ==
LOC: ER 21:55
DX: R07.89 Other chest pain (principal); N39.0 Urinary tract infection, site not specified; F17.210 Nicotine dependence, cigarettes, uncomplicated; Z90.49 Acquired absence of other specified parts of digestive tract
CPT/HCPCS: 36415; 71045; 80053; 81001; 82962; 83605; 84484; 85025; 85379; 87040; 93005; 94761; 96374; 96375; 99284; J2270; J2405

== ENCOUNTER → 2019-08-12 | Outpatient (CLI) | payer BC ==
[2019-08-12 08:32] LABS: Urine Bacteria NONE SEEN /hpf (None Seen); Urine Blood Negative /uL (Negative); Urine Specific Gravity 1.018 (1.001-1.035); Urine WBC 1 /hpf (0 - 5)
[2019-08-12 08:43] LABS: Potassium 4.2 mmol/L (3.5-5.1)
[2019-08-12 08:55] LABS: Albumin 3.7 g/dL (3.4-5.0); Bilirubin, Total 0.2 mg/dL (0.2-1.0); Calcium 8.8 mg/dL (8.5-10.1); Total Protein 7.5 g/dL (6.4-8.2)
== END | disposition home or self-care (01) ==
LOC: LAB 07:14
PROVIDERS: ATTEND Internal Medicine
DX: F32.9 Major depressive disorder, single episode, unspecified (principal); F10.29 Alcohol dependence with unspecified alcohol-induced disorder; R10.2 Pelvic and perineal pain
CPT/HCPCS: 36415; 80053; 80061; 81001; 82306; 83036; 84443

== ENCOUNTER 2020-08-24 12:15 | Emergency (ER) | payer BC ==
[~2020-08-24] VITALS: Ht 165.1 cm; Wt 72.6 kg
[2020-08-24 12:27] VITALS: BP 114/83
[2020-08-24 13:12] LABS: Basophils # (auto) 0.1 10 ^3/uL (0-0.2); Eosinophils # (auto) 0.1 10 ^3/uL (0-0.8); Lymphocytes # (auto) 1.4 10 ^3/uL (0.4-5.4); Monocytes # (auto) 0.8 10 ^3/uL (0-1.3); White Blood Cell 8.3 10^3/uL (4.4-10.8)
[2020-08-24 13:15] LABS: Basophils % (auto) 1.2 % (0.0-2.0); Eosinophils % (auto) 1.4 % (0.0-7.0); Hematocrit 29.9 % (36.0-46.0); Hemoglobin 9.1 g/dL (12.2-16.2); Lymphocytes % (auto) 16.7 % (10.0-50.0); Mean Corpuscular Hgb Conc. 30.4 g/dL (32.0-36.0); Mean Corpuscular Volume 65.9 fL (80.0-100.0); Neutrophils # (auto) 5.8 10 ^3/uL (1.6-8.6); Neutrophils % (auto) 70.7 % (37.0-80.0); Platelet Count (auto) 361 10^3/uL (140-450); Red Blood Cells 4.53 10^6/uL (4.0-5.20)
[2020-08-24] MEDS ORDERED: MORPHINE SULFATE 4 MG/ML SYR/VIAL IV ONE (13:15)
[2020-08-24] MEDS ORDERED: SODIUM CHLORIDE 0.9% 1,000 ML IVB ONE (13:15)
[2020-08-24] MEDS ORDERED: ONDANSETRON HCL 4 MG/2 ML VIAL IV ONE (13:15)
[2020-08-24 13:17] LABS: Red Cell Distribution Width 21.1 % (11.8-14.3)
[2020-08-24 13:55] LABS: Calcium 8.8 mg/dL (8.5-10.1); Magnesium 2.2 mg/dL (1.6-2.6); Potassium 3.5 mmol/L (3.5-5.1)
[2020-08-24 13:59] LABS: BUN/Creatinine Ratio 11.4; Bilirubin, Total 0.4 mg/dL (0.2-1.0); Total Protein 8.1 g/dL (6.4-8.2)
[2020-08-24 14:33] LABS: Urine Bacteria MANY /hpf (None Seen); Urine Blood Negative /uL (Negative); Urine Mucus FEW (None Seen); Urine WBC 6 /hpf (0 - 5)
[2020-08-24] MEDS ORDERED: traMADol HCL 50 MG TAB PO ONE (15:45)
== END 2020-08-24 16:21 | disposition home or self-care (01) ==
LOC: ER 12:15
DX: R10.9 Unspecified abdominal pain (principal); F17.210 Nicotine dependence, cigarettes, uncomplicated
CPT/HCPCS: 36415; 74176; 80053; 81001; 81025; 83605; 83735; 85025; 99284; J7030

== ENCOUNTER → 2020-09-27 | Outpatient (CLI) | payer BC ==
[2020-09-27 08:39] LABS: Amylase 47 U/L (25-115); Lipase 122 U/L (73-393)
== END | disposition home or self-care (01) ==
LOC: LAB 07:11
PROVIDERS: ATTEND Internal Medicine
DX: R10.9 Unspecified abdominal pain (principal)
CPT/HCPCS: 36415; 82150; 83690

== ENCOUNTER → 2020-11-01 | Outpatient (CLI) | payer BC ==
[2020-11-01 10:16] LABS: Basophils # (auto) 0.1 10 ^3/uL (0-0.2); Eosinophils # (auto) 0.2 10 ^3/uL (0-0.8); Hemoglobin 8.4 g/dL (12.2-16.2)
[2020-11-01 10:19] LABS: Basophils % (auto) 1.4 % (0.0-2.0); Hematocrit 27.9 % (36.0-46.0); Lymphocytes # (auto) 1.5 10 ^3/uL (0.4-5.4); Lymphocytes % (auto) 18.7 % (10.0-50.0); Mean Corpuscular Hemoglobin 19.9 pg (28.0-32.0); Mean Corpuscular Hgb Conc. 30.2 g/dL (32.0-36.0); Monocytes # (auto) 1.1 10 ^3/uL (0-1.3); Monocytes % (auto) 13.3 % (0.0-12.0); Neutrophils # (auto) 5.2 10 ^3/uL (1.6-8.6); Neutrophils % (auto) 64.6 % (37.0-80.0); Platelet Count (auto) 473 10^3/uL (140-450); Red Blood Cells 4.22 10^6/uL (4.0-5.20)
[2020-11-01 10:24] LABS: Urine Bacteria FEW /hpf (None Seen); Urine Blood Negative /uL (Negative); Urine Specific Gravity 1.015 (1.001-1.035); Urine WBC 15 /hpf (0 - 5)
[2020-11-01 10:42] LABS: Red Cell Distribution Width 21.4 % (11.8-14.3)
[2020-11-01 18:15] LABS: Albumin 3.7 g/dL (3.4-5.0); Calcium 8.5 mg/dL (8.5-10.1); Potassium 4.2 mmol/L (3.5-5.1)
[2020-11-01 18:19] LABS: BUN/Creatinine Ratio 8.7; Bilirubin, Total 0.2 mg/dL (0.2-1.0); Total Protein 7.2 g/dL (6.4-8.2)
== END | disposition home or self-care (01) ==
LOC: LAB 09:55
PROVIDERS: ATTEND Internal Medicine
DX: K76.0 Fatty (change of) liver, not elsewhere classified (principal); E55.9 Vitamin D deficiency, unspecified; D64.9 Anemia, unspecified
CPT/HCPCS: 36415; 80053; 81001; 82306; 83540; 85025; 85379

== ENCOUNTER → 2021-05-31 | Outpatient (CLI) | payer BC ==
[2021-05-31 12:06] LABS: Basophils # (auto) 0.1 10 ^3/uL (0-0.2); Basophils % (auto) 1.9 % (0.0-2.0); Eosinophils # (auto) 0.1 10 ^3/uL (0-0.8); Hemoglobin 9.2 g/dL (12.2-16.2); Monocytes # (auto) 0.6 10 ^3/uL (0-1.3); Neutrophils # (auto) 3.3 10 ^3/uL (1.6-8.6); Neutrophils % (auto) 61.6 % (37.0-80.0); White Blood Cell 5.4 10^3/uL (4.4-10.8)
[2021-05-31 12:08] LABS: Eosinophils % (auto) 1.6 % (0.0-7.0); Hematocrit 29.5 % (36.0-46.0); Lymphocytes # (auto) 1.2 10 ^3/uL (0.4-5.4); Mean Corpuscular Hgb Conc. 31.4 g/dL (32.0-36.0); Mean Corpuscular Volume 70.1 fL (80.0-100.0); Monocytes % (auto) 11.9 % (0.0-12.0); Nucleated Red Blood Cells % 0.1 %; Red Blood Cells 4.21 10^6/uL (4.0-5.20)
[2021-05-31 12:19] LABS: Red Cell Distribution Width 20.2 % (11.8-14.3)
[2021-05-31 13:06] LABS: Leuteinizing Hormone 4.4 IU/L
[2021-05-31 13:07] LABS: Follicle Stimulating Hormone 7.47 IU/L (SEE BELOW)
== END | disposition home or self-care (01) ==
LOC: LAB 11:32
PROVIDERS: ATTEND Obstetrics & Gynecology
DX: N93.9 Abnormal uterine and vaginal bleeding, unspecified (principal)
CPT/HCPCS: 36415; 82670; 83001; 83002; 84403; 84443; 85025

== ENCOUNTER 2021-08-04 08:20 | Day surgery (SDC) | payer BC ==
[2021-08-02 12:12] LABS: Basophils # (auto) 0.1 10 ^3/uL (0-0.2); Eosinophils # (auto) 0.1 10 ^3/uL (0-0.8); Hemoglobin 10.7 g/dL (12.2-16.2); Lymphocytes # (auto) 1.3 10 ^3/uL (0.4-5.4); Monocytes # (auto) 0.6 10 ^3/uL (0-1.3)
[2021-08-02 12:15] LABS: Basophils % (auto) 1.1 % (0.0-2.0); Eosinophils % (auto) 1.9 % (0.0-7.0); Hematocrit 33.8 % (36.0-46.0); Lymphocytes % (auto) 18.5 % (10.0-50.0); Mean Corpuscular Hemoglobin 24.4 pg (28.0-32.0); Mean Corpuscular Hgb Conc. 31.7 g/dL (32.0-36.0); Mean Corpuscular Volume 76.8 fL (80.0-100.0); Monocytes % (auto) 8.6 % (0.0-12.0); Neutrophils # (auto) 4.9 10 ^3/uL (1.6-8.6); Neutrophils % (auto) 69.9 % (37.0-80.0); Red Blood Cells 4.39 10^6/uL (4.0-5.20)
[2021-08-02 12:23] LABS: INR 1.01 (0.9-1.15); Partial Thromboplastin Time 27.2 sec (23.6-33.0)
[2021-08-02 12:26] LABS: Albumin 3.6 g/dL (3.4-5.0); Calcium 8.8 mg/dL (8.5-10.1); Potassium 3.6 mmol/L (3.5-5.1)
[2021-08-02 12:31] LABS: BUN/Creatinine Ratio 7.1; Bilirubin, Total 0.2 mg/dL (0.2-1.0); Total Protein 7.4 g/dL (6.4-8.2)
[2021-08-02 12:34] LABS: Urine Bacteria FEW /hpf (None Seen); Urine Blood Negative /uL (Negative); Urine Mucus FEW (None Seen); Urine Specific Gravity 1.025 (1.001-1.035); Urine WBC 3 /hpf (0 - 5)
[~2021-08-04] VITALS: Ht 165.1 cm; Wt 72.1 kg
[2021-08-04] MEDS ORDERED: PROPOFOL 10 MG/ML 20 ML IV ONE (09:31)
[2021-08-04] MEDS ORDERED: ONDANSETRON HCL 4 MG/2 ML VIAL ONE (09:31)
[2021-08-04] MEDS ORDERED: MIDAZOLAM HCL 2MG/2ML 2ml VIAL (1mg/ml) ONE (09:31)
[2021-08-04] MEDS ORDERED: SODIUM CHLORIDE LOCK 10 ML ONE (09:31)
[2021-08-04] MEDS ORDERED: fentaNYL CITRATE 100 MCG/2 ML VL ONE (09:31)
[2021-08-04] MEDS ORDERED: ceFAZolin 1GM/50ML 100 ML IV ONE (10:01)
[2021-08-04] MEDS ORDERED: ONDANSETRON HCL 4 MG/2 ML VIAL IV PRN (10:45)
[2021-08-04] MEDS ORDERED: LACTATED RINGER'S 1,000 ML IV SCH (10:45)
[2021-08-04] MEDS: HYDROmorphone HCL 2 MG/ML VL IV PRN ×4 (10:45→11:15)
[2021-08-04] MEDS ORDERED: HYDROmorphone HCL 2 MG/ML VL ONE (10:46)
[2021-08-04] MEDS ORDERED: KETOROLAC TROMETH 30 MG/ML 1ML VIAL ONE (10:46)
[2021-08-04] MEDS ORDERED: METOCLOPRAMIDE HCL 5MG/ml INJ 2ml VIAL IV PRN (11:00)
[2021-08-04] MEDS ORDERED: MORPHINE SULFATE 4 MG/ML SYR/VIAL IV PRN (11:00)
[2021-08-04] MEDS ORDERED: KETOROLAC TROMETH 30 MG/ML 1ML VIAL IV ONE (11:00)
[2021-08-04 12:00] VITALS: BP 124/95
== END 2021-08-04 12:10 | disposition home or self-care (01) ==
LOC: SUR 08:20
PROVIDERS: ATTEND Obstetrics & Gynecology
DX: D64.9 Anemia, unspecified (principal); Z87.891 Personal history of nicotine dependence; Z80.9 Family history of malignant neoplasm, unspecified; Z20.822 Contact with and (suspected) exposure to COVID-19; Z98.890 Other specified postprocedural states; Z79.899 Other long term (current) drug therapy
CPT/HCPCS: 36415; 58120; 58563; 80053; 81001; 81025; 84702; 85025; 85610; 85730; 86850; 86900; 86901; 88305; J0690; J1170; J1885; J2250; J2405; J2704; J3010; U0003

== ENCOUNTER → 2022-07-10 | Outpatient (CLI) | payer BC ==
[2022-07-10 08:17] LABS: Basophils # (auto) 0 10 ^3/uL (0-0.2); Basophils % (auto) 0.9 % (0.0-2.0); Eosinophils # (auto) 0.1 10 ^3/uL (0-0.8); Eosinophils % (auto) 1.8 % (0.0-7.0); Hematocrit 41.9 % (36.0-46.0); Hemoglobin 13.5 g/dL (12.2-16.2); Lymphocytes # (auto) 0.9 10 ^3/uL (0.4-5.4); Lymphocytes % (auto) 24.2 % (10.0-50.0); Mean Corpuscular Hemoglobin 29.8 pg (28.0-32.0); Mean Corpuscular Hgb Conc. 32.1 g/dL (32.0-36.0); Mean Corpuscular Volume 92.9 fL (80.0-100.0); Monocytes # (auto) 0.5 10 ^3/uL (0-1.3); Monocytes % (auto) 12.7 % (0.0-12.0); Neutrophils # (auto) 2.3 10 ^3/uL (1.6-8.6); Neutrophils % (auto) 60.4 % (37.0-80.0); Red Blood Cells 4.52 10^6/uL (4.0-5.20); Red Cell Distribution Width 17.7 % (11.8-14.3); White Blood Cell 3.9 10^3/uL (4.4-10.8)
[2022-07-10 08:44] LABS: % Iron Saturation 10.8 % (15-50); INR 0.93 (0.9-1.15); Partial Thromboplastin Time 28.3 sec (24.6-33.4)
[2022-07-10 08:45] LABS: Albumin 3.6 g/dL (3.4-5.0); Calcium 8.5 mg/dL (8.5-10.1); Potassium 3.9 mmol/L (3.5-5.1)
[2022-07-10 08:51] LABS: BUN/Creatinine Ratio 7.7; Bilirubin, Total 0.3 mg/dL (0.2-1.0); Total Protein 7.3 g/dL (6.4-8.2)
== END | disposition home or self-care (01) ==
LOC: LAB 08:02
PROVIDERS: ATTEND Internal Medicine
DX: D64.9 Anemia, unspecified (principal); E55.9 Vitamin D deficiency, unspecified; N39.9 Disorder of urinary system, unspecified
CPT/HCPCS: 36415; 80053; 80061; 82306; 83540; 83550; 85025; 85610; 85730; 86038

== ENCOUNTER → 2024-06-23 | Outpatient (CLI) | payer BC ==
[2024-06-23 08:01] LABS: Basophils # (auto) 0 10 ^3/uL (0-0.2); Eosinophils # (auto) 0.1 10 ^3/uL (0-0.8); Hemoglobin 16.5 g/dL (12.2-16.2); Monocytes # (auto) 0.5 10 ^3/uL (0-1.3); Neutrophils # (auto) 2.5 10 ^3/uL (1.6-8.6); Urine Bacteria FEW /hpf (None Seen); Urine Blood Negative /uL (Negative); Urine Clarity Turbid (Clear); Urine Color Yellow (Yellow); Urine Mucus FEW (None Seen); Urine Protein, UAD TRACE (Negative); Urine Specific Gravity 1.021 (1.001-1.035); Urine Urobilinogen Normal (Negative); Urine WBC 4 /hpf (0 - 5); White Blood Cell 4.1 10^3/uL (4.4-10.8)
[2024-06-23 08:03] LABS: Basophils % (auto) 0.9 % (0.0-2.0); Eosinophils % (auto) 2.5 % (0.0-7.0); Hematocrit 46.8 % (36.0-46.0); Lymphocytes % (auto) 24.1 % (10.0-50.0); Mean Corpuscular Hemoglobin 35.5 pg (28.0-32.0); Mean Corpuscular Hgb Conc. 35.2 g/dL (32.0-36.0); Mean Corpuscular Volume 101.1 fL (80.0-100.0); Monocytes % (auto) 11.5 % (0.0-12.0); Platelet Count (auto) 201 10^3/uL (140-450); Red Blood Cells 4.63 10^6/uL (4.0-5.20); Red Cell Distribution Width 13.4 % (11.8-14.3)
[2024-06-23 08:12] LABS: Alanine Aminotransferase 19 U/L (7-40); Albumin 4.7 g/dL (3.2-4.8); Alkaline Phosphatase 75 U/L (46-116); Anion Gap 7 (5-15); Aspartate Aminotransferase 20 U/L (13-40); BUN/Creatinine Ratio 11.8 (10.0-20.0); Blood Urea Nitrogen 10 mg/dL (9-23); CRP High Sensitivity 0.51 mg/dL (<1.0); Calcium 9.7 mg/dL (8.7-10.4); Carbon Dioxide 26 mmol/L (20-30); Chloride 104 mmol/L (98-107); Cholesterol 192 mg/dL (< 200); Creatine Kinase IFCC 78 U/L (34-145); Glucose 89 mg/dL (74-106); HDL Cholesterol 83 mg/dL (40-59); LDL Cholesterol 90 mg/dL (< 100); Sodium 137 mmol/L (136-145); Triglycerides 139 mg/dL (< 150)
[2024-06-23 08:13] LABS: Bilirubin, Total 0.6 mg/dL (0.2-1.0); Total Protein 8.1 g/dL (5.7-8.2)
[2024-06-23 09:04] LABS: Protein, Urine 36.6 mg/dL (0.0-11.9)
[2024-06-23 09:06] LABS: Creatinine, Urine 198.72 mg/dL (30.0-125.0); Urine Protein/Creatinine Ratio 0.18
== END | disposition home or self-care (01) ==
LOC: LAB 06:55
PROVIDERS: ATTEND Internal Medicine
DX: E55.9 Vitamin D deficiency, unspecified (principal); E78.5 Hyperlipidemia, unspecified; E61.1 Iron deficiency
CPT/HCPCS: 36415; 80053; 80061; 81001; 82306; 82550; 82570; 82607; 83036; 84156; 84443; 85025; 86141; 87340